=== PATIENT | female | born 1985 | race African-American/Black ===

== ENCOUNTER 2016-07-08 19:35 | Inpatient (IN) | payer SELFPAY ==
[~2016-07-08] VITALS: Ht 152.4 cm; Wt 121.6 kg
[2016-07-08] MEDS ORDERED: diphenhydrAMINE HCL 50 MG/ML VIAL ONE ×2 (20:26→23:59)
[2016-07-08] MEDS ORDERED: HYDROMORPHONE INJ 2 MG/ML DISP.SYRIN ONE (20:26)
[2016-07-08] MEDS ORDERED: IV SET PRIMARY PUMP SET 1 EA INFUS.SET MC ONE (20:27)
[2016-07-08] MEDS ORDERED: IV NS 0.9% 500 ML IV ONE (20:27)
[2016-07-08] MEDS ORDERED: HYDROMORPHONE INJ 2 MG/ML DISP.SYRIN IV ONE ×2 (20:30)
[2016-07-08] MEDS ORDERED: diphenhydrAMINE HCL 50 MG/ML VIAL IV ONE (20:30)
[2016-07-08] MEDS ORDERED: IV NS 0.9% 500 ML BAG IV ONE (20:30)
[2016-07-08 21:14] LABS: BASOPHILS % (AUTO) 0.3 % (0.0-2.0); DIFF TOTAL % 100 %; EOSINOPHILS % (AUTO) 0.2 % (0.0-6.0); HEMATOCRIT 30 % (33-45); HEMOGLOBIN 9.8 g/dL (11.5-14.8); LYMPHOCYTES # (AUTO) 0.4 /CMM (0.8-4.8); LYMPHOCYTES % (AUTO) 6.7 % (20.0-44.0); MEAN CORPUSCULAR HEMOGLOBIN 32 PG (26.0-33.0); MEAN CORPUSCULAR HGB CONC 33 g/dl (31.0-36.0); MEAN CORPUSCULAR VOLUME 99 fL (82-100); MONOCYTES # (AUTO) 0.2 /CMM (0.1-1.30); MONOCYTES % (AUTO) 2.9 % (2.0-12.0); NEUTROPHILS # (AUTO) 5.7 /CMM (1.8-8.9); NEUTROPHILS % (AUTO) 89.9 % (43.0-81.0); PLATELET COUNT (AUTO) 200 /CMM (150-450); RED BLOOD CELL COUNT(AUTO) 3.03 MIL/uL (4.0-5.2); WHITE BLOOD COUNT (AUTO) 6.3 K/uL (4.3-11.0)
[2016-07-08 21:25] LABS: ANION GAP 12 (5-14); CARBON DIOXIDE 23 mmol/L (21-32); CHLORIDE 109 mmol/L (98-107); CREATININE 0.7 mg/dL (0.6-1.3); GFR 118 mL/min (>60); GLUCOSE 130 mg/dL (74-106); POTASSIUM 4.4 mmol/L (3.5-5.1); SODIUM SERUM 140 mmol/L (136-145); UREA NITROGEN, BLOOD 21 mg/dL (7-18)
[2016-07-08 21:29] LABS: INR 1.04 (0.87-1.13); PROTHROMBIN TIME 10.9 SECS (9.5-12.7)
[2016-07-08 21:32] LABS: TROPONIN I < 0.017 ng/mL (0.00-0.056)
[2016-07-08 21:37] LABS: ALANINE AMINOTRANSFERASE 36 U/L (12-78); ALBUMIN 3.4 g/dL (3.4-5.0); ASPARTATE AMINOTRANSFERASE 27 U/L (15-37); BILIRUBIN,DIRECT 0.1 mg/dL (0.0-0.2); BILIRUBIN,TOTAL 0.3 mg/dL (0.2-1.0); INDIRECT BILIRUBIN 0.2 mg/dL (0.0-1.1); TOTAL PROTEIN, SERUM 6.9 g/dL (6.4-8.2)
[2016-07-08 22:45] VITALS: BP 140/69
[2016-07-08 22:58] VITALS: BP 140/65
[2016-07-08] MEDS ORDERED: MYCO500T PO (23:29)
[2016-07-08] MEDS ORDERED: FOLI1TAB16 PO (23:29)
[2016-07-08] MEDS ORDERED: FURO-145 PO (23:29)
[2016-07-08] MEDS ORDERED: TOPI100T11 PO (23:29)
[2016-07-08] MEDS ORDERED: GABA800T PO (23:29)
[2016-07-08] MEDS ORDERED: ASPI81TA2 PO (23:29)
[2016-07-08] MEDS ORDERED: CARV3.12 PO (23:29)
[2016-07-08] MEDS ORDERED: ALPR2TAB2 PO (23:29)
[2016-07-08] MEDS ORDERED: WARF10TA22 PO (23:29)
[2016-07-08] MEDS ORDERED: CLOP75TA2 PO (23:29)
[2016-07-08] MEDS ORDERED: OXCA150T5 PO (23:29)
[2016-07-08] MEDS ORDERED: QUET400T PO (23:29)
[2016-07-08] MEDS ORDERED: ATOR40TA PO (23:29)
[2016-07-08] MEDS ORDERED: HYDR500C2 PO (23:29)
[2016-07-08] MEDS ORDERED: CITA40TA22 PO (23:29)
[2016-07-08] MEDS ORDERED: FLEXERIL PO (23:29)
[2016-07-08] MEDS ORDERED: ZOLP10TA2 PO (23:29)
[2016-07-08] MEDS ORDERED: PRED20TA PO (23:29)
[2016-07-08] MEDS ORDERED: ACETAMINOPHEN 325 MG TABLET PO PRN (23:30)
[2016-07-08] MEDS ORDERED: ZOLPIDEM TARTRATE 5 MG TABLET PO PRN (23:30)
[2016-07-08] MEDS ORDERED: ONDANSETRON HCL/PF 4 MG/2 ML VIAL IVP PRN (23:30)
[2016-07-08] MEDS ORDERED: MAG HYDROX/AL HYDROX/SIMETH 30 ML UDC PO PRN (23:30)
[2016-07-08] MEDS ORDERED: IV NS 0.9% 1,000 ML IV PRN (23:30)
[2016-07-08] MEDS ORDERED: HYDROCODONE/APAP 5/325MG 1 EACH TABLET PO PRN (23:30)
[2016-07-08] MEDS ORDERED: Z GUARD REMEDY 2 OZ OINT TP PRN (23:30)
[2016-07-08] MEDS ORDERED: HYDROMORPHONE 1 MG/1 ML DISP.SYRIN ONE (23:58)
[2016-07-09] MEDS ORDERED: ZOLPIDEM TARTRATE 10 MG TABLET PO PRN
[2016-07-09] MEDS: HYDROMORPHONE 1 MG/1 ML DISP.SYRIN IV PRN ×2 (00:16→07:09)
[2016-07-09] MEDS: diphenhydrAMINE HCL 50 MG/ML VIAL IV PRN ×2 (00:19→07:43)
[2016-07-09 04:00] VITALS: BP 130/78
[2016-07-09] MEDS ORDERED: HYDROMORPHONE 1 MG/1 ML DISP.SYRIN ONE (06:59)
[2016-07-09] MEDS ORDERED: PANTOPRAZOLE 40 MG TABLET.DR PO SCH (07:30)
[2016-07-09 08:00] VITALS: BP 114/62
[2016-07-09] MEDS ORDERED: TOPIRAMATE 100 MG TABLET PO SCH (09:00)
[2016-07-09] MEDS ORDERED: predniSONE 20 MG TABLET PO SCH (09:00)
[2016-07-09] MEDS ORDERED: ASPIRIN 81 MG TAB.CHEW PO SCH (09:00)
[2016-07-09] MEDS ORDERED: FOLIC ACID 1 MG TABLET PO SCH (09:00)
[2016-07-09] MEDS ORDERED: HYDROXYUREA 500 MG CAPSULE PO SCH (09:00)
[2016-07-09] MEDS ORDERED: FUROSEMIDE 20 MG TABLET PO SCH (09:00)
[2016-07-09] MEDS ORDERED: ATORVASTATIN 40 MG TABLET PO SCH (09:00)
[2016-07-09] MEDS ORDERED: CARVEDILOL 3.125 MG TABLET PO SCH (09:00)
[2016-07-09] MEDS ORDERED: MYCOPHENOLATE MOFETIL 250 MG CAPSULE PO SCH (09:00)
[2016-07-09] MEDS ORDERED: CITALOPRAM HYDROBROMIDE 20 MG TABLET PO SCH (09:00)
[2016-07-09] MEDS ORDERED: QUETIAPINE FUMARATE 100 MG TABLET PO SCH (09:00)
[2016-07-09] MEDS ORDERED: OXCARBAZEPINE 150 MG TABLET PO SCH (09:00)
[2016-07-09] MEDS ORDERED: CLOPIDOGREL BISULFATE 75 MG TABLET PO SCH (09:00)
[2016-07-09] MEDS ORDERED: ALPRAZOLAM 1 MG TABLET PO PRN (09:00)
[2016-07-09] MEDS: GABAPENTIN 400 MG CAPSULE PO SCH ×2 (09:03→13:00)
[2016-07-09] MEDS: CYCLOBENZAPRINE 10 MG TABLET PO SCH ×2 (09:04→13:00)
[2016-07-09] MEDS ORDERED: IV SET PRIMARY PUMP SET 1 EA INFUS.SET MC ONE (11:07)
[2016-07-09 12:00] VITALS: BP 103/60
== END 2016-07-09 14:30 | disposition left against medical advice (07) | DRG 812 ==
LOC: ER 19:38 → TELE 21:08 → MED 07-09 12:22
PROVIDERS: ADMIT Nurse Practitioner Acute Care; ATTEND Nurse Practitioner Acute Care
DX: D57.00 Hb-SS disease with crisis, unspecified (principal); Z68.43 Body mass index [BMI] 50.0-59.9, adult; D68.59 Other primary thrombophilia; E66.01 Morbid (severe) obesity due to excess calories; Z86.73 Personal history of transient ischemic attack (TIA), and cerebral infarction without residual deficits; F32.9 Major depressive disorder, single episode, unspecified; F41.9 Anxiety disorder, unspecified; G89.4 Chronic pain syndrome; Z86.718 Personal history of other venous thrombosis and embolism; Z76.5 Malingerer [conscious simulation]; E11.9 Type 2 diabetes mellitus without complications; Z86.711 Personal history of pulmonary embolism; W19.XXXA Unspecified fall, initial encounter; Y93.9 Activity, unspecified; Y92.009 Unspecified place in unspecified non-institutional (private) residence as the place of occurrence of the external cause; Y99.9 Unspecified external cause status; I11.0 Hypertensive heart disease with heart failure; I50.9 Heart failure, unspecified; R07.89 Other chest pain
CPT/HCPCS: 36415; 70450-TC; 71010-TC; 73080-TC; 80048-TC; 80061-TC; 80076-TC; 83735-TC; 83880; 84100-TC; 84484-TC; 84703-TC; 85025-TC; 85045-TC; 85378-TC; 85730-TC; 87040-TC; 87081-TC; A4606; J1170; J1200; J7030; J7040; J7517; Z7610